=== PATIENT | male | born 1975 | race Caucasian/White ===

== ENCOUNTER 2019-05-10 19:32 | Emergency (ER) | payer OTHER, SELFPAY ==
[2019-05-10 19:34] VITALS: BP 135/90; PULSE 96; RESP 12; TEMP 36.3; O2SAT 96; BMI 26.0
[2019-05-10 19:40] LABS: Bedside Glucose 129 mg/dL (70-110)
--- NOTE | 2019-05-10 20:11 | EKG12_ITS ---
Test Reason : Blood Pressure : / mmHG Vent. Rate : 084 BPM Atrial Rate : 084 BPM P-R Int : 170 ms QRS Dur : 114 ms QT Int : 382 ms P-R-T Axes : 049 069 050 degrees QTc Int : 451 ms Normal sinus rhythm Incomplete right bundle branch block Borderline ECG Confirmed by SHUBHAM BURCH, GERI ([id number]), continuity editor CLARICE BOCANEGRA ([id number]) on 05/12/2019 12:18:32 PM Referred By: PEGGY Confirmed By:GERI JALLOH MD
--- NOTE | 2019-05-10 20:11 | CT_ITS ---
STUDY: CT BRAIN WITHOUT CONTRAST REASON FOR EXAM: Male, 43 years old. Dizziness, unresponsive RADIATION DOSAGE (If Supplied By Facility): CTDIvol = ( 44.99 ) mGy, DLP = ( 812.98 ) mGycm TECHNIQUE: Transaxial CT imaging of the brain was performed without administration of intravenous contrast material. Individualized dose optimization techniques were used for this CT. COMPARISON: No relevant priors. FINDINGS: Normal soft tissue structures. Normal calvarium. Normal size ventricles and extra-axial spaces for the patient's age. Normal white matter tracts of the cerebral hemispheres. Normal basal ganglia and thalami. Normal brainstem. Normal cerebellum. There is no intracranial hemorrhage. There are no findings of an acute ischemic infarction. There is a polypoid filling defect of the right maxillary sinus. CT/Brain/Head without Contrast IMPRESSION: Polypoid filling defect of the right maxillary sinus consistent with a mucoid retention cyst. The study is otherwise unremarkable. Electronically Signed: Jovanni Freitas MD at 20:43 EDT , Service support ,
[2019-05-10 20:33] VITALS: BP 121/71; PULSE 88; RESP 14; O2SAT 100
[2019-05-10] MEDS: 0.9% Normal Saline 1,000 ML 150 ML IV (20:39)
[2019-05-10 20:44] LABS: Anion Gap 10 (5-15); BUN 16 mg/dL (7-18); BUN/Creat Ratio 10.9 RATIO (10-20); Calcium,Total 9.5 mg/dL (8.5-10.1); Chloride 101 mmol/L (98-107); Creatinine, Serum 1.47 mg/dL (0.70-1.30); EST Glomerular Filtration Rate 56 mL/min (>60); Est Glom Filt Rate - Afr Amer 67 mL/min (>60); Estimated Creatinine Clearance 78.24 ml/min; Glucose 141 mg/dL (74-106); Potassium 3.6 mmol/L (3.5-5.1); Sodium Level 135 mmol/L (136-145)
[2019-05-10 20:50] LABS: Carboxyhemoglobin Frac (CO) 50.6 % (0.0-1.5)
--- NOTE | 2019-05-10 20:50 | ED.RN ---
lab called with critical lab results. carb ox hemoglobin 50.8. Dr. hudson made aware no new orders at this time
[2019-05-10 20:51] LABS: Absolute Lymphocyte Count 3.85 X10^3/ul (0.83-4.51); Absolute Neutrophil Count 5.2 X10^3/uL (2.0-7.7); Basophil# 0.02 X10^3/uL; Basophil% 0.2 % (0-1); Eosinophil# 0.13 X10^3/uL; Eosinophils% 1.3 % (0-5); Hematocrit 44.3 % (40-54); Lymphocyte # 3.85 X10^3/ul (4.0); Lymphocyte % 38.3 % (19-41); Mean Platelet Vol. 10.5 fl (6.2-12.0); Monocyte# 0.87 X10^3/uL; Monocyte% 8.6 % (0-10); Neutrophil # 5.17 X10^3/uL (2.7-7.7); Neutrophil % 51.4 % (47-70); Platelet Count 334 K/mm3 (150-450); RBC Distribution Width CV 13.2 % (11.6-14.6); RBC Distribution Width SD 41.3 fl (35.1-43.9); Red Blood Count 5.15 M/mm3 (4.6-6.2); White Blood Count 10.1 K/mm3 (4.4-11.0)
[2019-05-10 20:52] LABS: Hemoglobin 15.2 g/dl (13.0-16.5); Mean Corp Hgb Conc 35.7 g/gl (32-36); Mean Corpuscular Hgb 29.5 pg (27.0-32.0); POSITIVE COUNT NO; POSITIVE DIFFERENTIAL NO; POSITIVE MORPHOLOGY NO
--- NOTE | 2019-05-10 21:07 | ED.RN ---
attempted to contact [facility] at this time for transfer
--- NOTE | 2019-05-10 21:34 | ED.RN ---
[facility] called back and obtained patient information at this time. they will page their senior asp net developer for acceptance at this time
[2019-05-10 22:00] VITALS: BP 124/87; PULSE 87; RESP 15; O2SAT 99
--- NOTE | 2019-05-10 22:10 | ED.DCSUM_ITS ---
- ER Visit Summary Date of Service: 05/10/19 Chief Complaint: [Mental status change] History of Present Illness: The patient is a 43 M [sent to the emergency department with confusion and mental status change today. Patient presents via EMS. Patient apparently sent a text message to a friend that he was working in his garage with a generator running and he was feeling lightheaded and did not feel well. The friend then went over to the garage and found the patient unconscious on the ground with foam at the mouth. EMS was contacted immediately and they noted the presence of carbon monoxide. Patient was placed on oxygen and brought to the emergency department for evaluation. On my evaluation of the patient patient is now alert and oriented and appropriate. He is complaining of an odd sensation to his hearing as if he were in a tunnel. Patient also describes an odd sensation to his body and some tingling to his feet. He denies any head pain or neck pain. Patient has history of SVT. Patient has no prior surgical history. He has no primary care physician. Patient is a smoker.] Physical Examination: [HEENT-PERRLA, EOMI. Cranial nerves II through XII grossly intact. TMs clear. Mucous membranes moist. No adenopathy. No C-spine tenderness on palpation. Normal active range of motion is painless. Cardiovascular-regular rate and rhythm without murmur or ectopy Lungs-clear to auscultation, chest wall stable without crepitus or subcu emphysema Abdomen-normoactive bowel sounds, soft, nontender, no rebound or rigidity, no peritoneal signs. Extremities-intact ?4, normal range of motion, normal pulses, atraumatic] Test Results: [CT scan of the brain without contrast was unremarkable. Patient did have a mucous retention cyst noted. EKG obtained showed sinus rhythm with a ventricular rate of 84 bpm with right bundle branch block. CBC with differential is normal. Chemistries unremarkable. Carboxyhemoglobin was 50.6.] Emergency Department Course and Treatment: [Patient remained on 100% oxygen throughout her stay in the emergency department. Patient case was discussed with sourcing consultant Dr. Markham. At this point it was recommended that we transfer patient to a facility where they would have access to a hyperbaric chamber. We contacted [facility] in [facility] and they do not have 24-hour availability. We contacted [facility] who accepted transfer of the patient to their facility.] Treatment Plan: [Transfer to [facility] for definitive care.] Disposition: [Transfer] Impression: [Carbon monoxide poisoning] This note was generated with [employer] dictation software. It may contain incorrect words, spelling, and punctuation that were not noted in review of the chart prior to signing ED Disposition - Plan for ED Patient: Referrals: Care Physician,No Primary [Primary Care Provider] -
[2019-05-10 22:30] VITALS: BP 129/84; PULSE 86; RESP 16; TEMP 36.3; O2SAT 99
== END 2019-05-10 23:00 | disposition short-term general hospital (02) ==
LOC: ED 20:48
PROVIDERS: Emergency Provider Emergency Medicine
DX: T58.91XA Toxic effect of carbon monoxide from unspecified source, accidental (unintentional), initial encounter (principal); F17.200 Nicotine dependence, unspecified, uncomplicated
CPT/HCPCS: 36415; 70450; 80048; 82375; 82962; 84484; 85025; 93005; 96360; 96361; 99285; J7030